=== PATIENT | female | born 1985 | race Caucasian/White ===

== ENCOUNTER 2018-03-06 21:58 | Emergency (ER) | payer OTHER ==
[~2018-03-06] VITALS: Ht 160 cm; Wt 83.9 kg
[2018-03-06 21:59] VITALS: BP_SYST 120
[2018-03-06] MEDS ORDERED: KETOROLAC TROMETHAMINE 30 MG VIAL IVP ONE (22:15)
[2018-03-06] MEDS ORDERED: ONDANSETRON HCL 4 MG/2 ML VIAL IVP ONE (22:15)
[2018-03-06] MEDS ORDERED: fentaNYL CITRATE/PF 100 MCG/2 ML AMP IVP ONE (22:45)
[2018-03-06] MEDS ORDERED: MORPHINE 4 MG/ML INJ. SYRINGE IVP ONE (23:45)
[2018-03-07] MEDS ORDERED: KETAMINE 30 MG/3 ML SYRINGE 25 MG in NS 100 ML IV ONE (00:15)
[2018-03-07] MEDS ORDERED: KETAMINE 30 MG/3 ML SYRINGE ONE (00:21)
[2018-03-07] MEDS ORDERED: ONDANSETRON HCL 4 MG/2 ML VIAL IVP ONE (01:15)
[2018-03-07] MEDS ORDERED: NACL 0.9% 1,000 ML IV ONE (01:15)
[2018-03-07 02:20] VITALS: BP_SYST 126
== END 2018-03-07 02:20 | disposition home or self-care (01) ==
LOC: SED 21:58
DX: S42.401A Unspecified fracture of lower end of right humerus, initial encounter for closed fracture (principal); W19.XXXA Unspecified fall, initial encounter; Y93.89 Activity, other specified; Y92.89 Other specified places as the place of occurrence of the external cause; Y99.8 Other external cause status
CPT/HCPCS: 73090; 93005; 96365; 96375; 96376; 99283; J1885; J2270; J2405 ×2; J3010; J7030